=== PATIENT | male | born 1960 | race Caucasian/White ===

== ENCOUNTER 2025-10-13 14:48 | Outpatient (AMB) | payer OTHER, SELFPAY ==
[2025-10-13 14:50] VITALS: BP 119/78; PULSE 80; RESP 16; O2SAT 98; BMI 20.9
--- NOTE | 2025-10-13 14:50 | A.OFFVIS_ITS ---
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 The patient has a history of lumbar back pain since 2009, attributed to lumbar degenerative disc disease, arthritis, and sciatica. He denies any inciting injury, falls, or trauma. 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 The pain is described as aching, burning, and is associated with numbness and tingling along the left foot and leg. Back pain is present with daily activities, getting up from sitting position, bending, lifting, prolonged standing or walking. The patient has undergone multiple interventions including caudal epidural steroid injections, interlaminar epidural steroid injections at L2-L3 and L5-S1, bilateral L5 transforaminal epidural injections, and lumbar medial branch blocks at L3-L4-L5 at [facility]. Despite these interventions, the patient reports no significant relief from the injections. An updated MRI in July revealed level convex scoliosis, extensive degenerative disc disease, facet joint arthropathy, and central spine canal and neuroforaminal stenosis, with a more prominent L4-L5 left disc protrusion compressing the left L5 nerve, consistent with his symptoms. The MRI also showed severe left foraminal stenosis at L5-S1. The patient has a history of low back surgery in 2010 and 2011 at levels L2-L3 and L5-S1, and has two cardiac stents. He takes daily Aspirin. He stopped alcohol consumption in 2010 and consumes two to three cups of coffee daily. He has tried physical therapy, acupuncture, and TENS unit for pain management with continued symptoms, reduced quality of life, with chronic pain affecting his daily activities, functioning and work. 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 - Analgesia: Current medications include cyclobenzaprine and NSAIDs, with pain levels ranging from 4 to 8 out of 10 - Adverse Effects: No significant relief from steroidal injections - Activities of Daily Living: Pain affects bending, twisting, and walking - Aberrant Drug Related Behaviors: None reported Ostewestry Low Back Pain Disability Score=13 [facility] Medical History (Updated 10/13/25 @ 15:52 by JOE Nelson) Heart attack Heart disease Arthritis Surgical History (Updated 10/13/25 @ 15:05 by Leilani Mráquez MA) H/O vasectomy History of back surgery H/O heart surgery S/P appendectomy Review of Systems Const Details: - Musculoskeletal: Reports chronic lumbar back pain, worse with activity, better at night - Neurological: Reports numbness and tingling in the left foot and leg, denies bladder or bowel dysfunction or saddle anesthesia All systems reviewed & are unremarkable except as noted in HPI and below Physical Exam Vital Signs: Last Vital Signs Pulse 80 10/13/25 14:50 Resp 16 10/13/25 14:50 BP 119/78 10/13/25 14:50 Pulse Ox 98 10/13/25 14:50 Oxygen Delivery Method Room Air 10/13/25 14:50 BMI result Body Mass Index 20.9 General: Appears afebrile. Alert and oriented. Mood and affect appropriate. Follows and participates in conversation appropriately. Respiratory effort is unlabored. No cough. Able to transition from sit to stand unassisted. Ambulates with bilaterally normal heel strike and toe off. General: Yes no CVA tenderness Back/Spine/Pelvis Other: Lumbar flexion forward and bending reproduces moderate to severe pain, lumbar extension is intact, reproduces mild to moderate pain. Demonstrates 5/5 strength of quadriceps bilaterally as well as flexion/dorsiflexion of bilateral feet against resistance. 2+ pedal pulses bilaterally. Straight leg rise with dorsiflexion is positive on the left. +2 patellar and achilles reflexes bilaterally. Facet loading test positive bilaterally. Justin?s,Pelvic compression and Stinchfield tests are negative bilaterally. No groin pain with I/E hip rotations. Valsalva maneuver negative. Back: no CVA tenderness Cervical Spine: cervical ROM normal, No Cervical spine tenderness and No step off deformity Thoracic/Lumbar Spine: thoracic and lumbar spine normal to inspection, Thoracic/lumbar spine scar(s), Lasegue's sign positive on the left and diffuse, pain with thoraco-lumbar ROM, No thoracic spinal tenderness and lumbar spinal tenderness (L5-S1) Pelvis: buttock tenderness on the left Sacroiliac joints: bilaterally nontender Extrem General: Yes capillary refill normal, Yes no clubbing, cyanosis or edema and Yes no calf tenderness Results Reviewed Results Reviewed: Assessment & Plan Assessment & Plan (1) Vertebrogenic low back pain: Code(s): M54.51 - Vertebrogenic low back pain Category: Medical (2) Lumbar degenerative disc disease: Code(s): M51.36 - Other intervertebral disc degeneration, lumbar region Category: Medical (3) Lumbosacral spondylosis: Code(s): M47.817 - Spondylosis without myelopathy or radiculopathy, lumbosacral region Category: Medical (4) Lumbosacral spinal stenosis: Code(s): M48.07 - Spinal stenosis, lumbosacral region Category: Medical (5) Chronic low back pain with left-sided sciatica: Code(s): M54.42 - Lumbago with sciatica, left side; G89.29 - Other chronic pain Category: Medical Plan The patient will be scheduled for the Intracept procedure, which aims to alleviate discogenic pain by targeting the basivertebral nerve. Given scheduling delays at [facility], arrangements are being expedited to perform the procedure at our [facility] facility. Schedule basivertebral nerve ablation (Intracept) at L3, L4, L5, S1 levels to address vertebrogenic pain with sedation and fluoroscopy. Discussed the risks and benefits of the procedure with the patient in detail. Will initiate request for insurance authorization for the procedure. A procedure brochure was provided to the patient. Patient has been instructed to discontinue aspirin one week before the procedure to minimize the risk of bleeding. Potential risks, post-procedural soreness, and estimated recovery were acknowledged. Discussed structured physical therapy program for rehabilitation and optimal recovery. The patient is advised to monitor and report any changes in his left leg symptoms promptly to Dr. Marie and our office. All questions and concerns have been answered and patient agreed with the treatment plan. Follow up after BVN ablation and sooner as needed. Patient was informed and verbally consented to the use of an ambient scribe for clinic note documentation during this visit. Coding Level of Care Code New Pt Level 4 (57239) Diagnoses Vertebrogenic low back pain M54.51 Lumbar degenerative disc disease M51.36 Lumbosacral spondylosis M47.817 Lumbosacral spinal stenosis M48.07 Chronic low back pain with left-sided sciatica M54.42; G89.29
== END 2025-10-13 15:51 | disposition home or self-care (01) ==
LOC: HO.PMC 14:49
PROVIDERS: PCP Family Medicine; Visit Provider Nurse Practitioner Family
DX: M54.51 Vertebrogenic low back pain (principal); M51.369 Other intervertebral disc degeneration, lumbar region without mention of lumbar back pain or lower extremity pain; M47.817 Spondylosis without myelopathy or radiculopathy, lumbosacral region; M48.07 Spinal stenosis, lumbosacral region; M54.42 Lumbago with sciatica, left side; G89.29 Other chronic pain
CPT/HCPCS: 99204